=== PATIENT | female | born 1955 | race Caucasian/White ===

== ENCOUNTER → 2019-12-17 | Outpatient (CLI) | payer MEDICARE, OTHER ==
--- NOTE | 2019-12-17 12:41 | Diagnostic Imaging Report ---
TECHNIQUE: Magnetic resonance imaging of the PELVIS was performed WITHOUT injected contrast using standard departmental protocols. HISTORY: Spondylosis, nerve compression COMPARISON: None. FINDINGS: Bone and bone marrow: No focal or infiltrative bone marrow replacing abnormality. No fracture or osteonecrosis. Sacroiliac joint: No sacroiliitis or significant arthrosis. Lower lumbar spine and nerve roots: Facet arthrosis at L5-S1. No significant foraminal stenosis. No mass effect on the exiting nerve roots or proximal sciatic nerves. Soft tissues: Unremarkable. IMPRESSION: Unremarkable sacroiliac joints. Facet arthrosis L5-S1. No foraminal stenosis or mass effect on the exiting nerve roots. Signed by: Dr. Jad Oleary M.D. on 12/17/2019 12:38 PM
--- NOTE | 2019-12-17 13:09 | Diagnostic Imaging Report ---
EXAMINATION: MRI of the lumbar spine without contrast HISTORY: Low back pain for the last 5 years radiating to the bilateral lower extremities with numbness and weakness COMPARISON: None. TECHNIQUE: Sagittal T1, T2, STIR; axial T2 and proton density. FINDINGS: It is assumed that there are 5 lumbar vertebrae. Curvature/Alignment: Normal lordosis. Vertebrae: No evidence of recent fracture, infection, or neoplasm. Conus: Normal, terminating at T12-L1 Cauda equina: Unremarkable. Lower thoracic: Unremarkable. Paraspinal soft tissues: Unremarkable. Degenerative changes: L1-L2: Minimal symmetric disc bulge. No canal or foraminal stenosis. L2-L3: Within normal limits. L3-L4: Within normal limits. L4-L5: Within normal limits. L5-S1: Normal disc. Moderate bilateral facet arthrosis. No associated spinal canal or foraminal stenosis. No evidence of nerve root compression. Sacroiliac joints: Unremarkable. IMPRESSION: Moderate facet arthrosis at L5-S1 without associated spinal canal or neural foraminal stenosis. No evidence of nerve root compression. Otherwise no significant degenerative changes or stenosis. Signed by: Dr. Eun Clifford M.D. on 12/17/2019 1:06 PM
--- NOTE | 2019-12-17 13:12 | Diagnostic Imaging Report ---
EXAMINATION: MRI of the cervical spine without contrast HISTORY: Neck pain radiating to the upper extremities with hand numbness for last 5 years COMPARISON: None available TECHNIQUE: Sagittal T1, T2, STIR; axial T2, gradient echo. FINDINGS: Curvature: Normal lordosis. Vertebrae: No evidence of neoplasm, infection, or fracture. Minimal depression of the endplates from C3 to C6, which may related to osteopenia. No associated posterior retropulsion or canal stenosis. Foramen magnum: No mass, Chiari malformation, or basilar invagination. Spinal Cord: Normal size and signal intensity. Soft Tissues: Unremarkable. Degenerative changes: Minimal disc bulges and facet arthroses from C3-C4 to C6-7 without associated spinal canal or foraminal stenosis. Particularly no disc herniations are seen. IMPRESSION: 1. No significant degenerative changes, no disc herniations, no spinal canal foraminal stenosis. 2. Decreased bone marrow density and possible osteopenia with minimal depression of the vertebral body endplates as detailed above. Signed by: Dr. Eun Clifford M.D. on 12/17/2019 1:09 PM
== END ==
LOC: MRI 09:22
PROVIDERS: ATTEND Internal Medicine Interventional Cardiology
DX: I73.9 Peripheral vascular disease, unspecified (principal); I87.2 Venous insufficiency (chronic) (peripheral); M48.062 Spinal stenosis, lumbar region with neurogenic claudication
CPT/HCPCS: 72141; 72148; 72195